=== PATIENT | male | born 1980 | race Asian ===

== ENCOUNTER 2018-03-06 15:42 | Emergency (ER) | payer OTHER ==
[~2018-03-06] VITALS: Ht 174 cm; Wt 70.3 kg
[2018-03-06 15:46] VITALS: TEMP 36.5; Ht 174 cm; Wt 70.3 kg
[2018-03-06] MEDS ORDERED: AMPICILLIN/SULBACTAM SOD INJ 3,000 MG in SODIUM CHLORIDE 0.9% 100ML 100 ML IV STA (16:00)
[2018-03-06 16:19] LABS: BASO % 0.3 %; BASO ABS # 0.02 K/uL (0-0.2); EOS ABS # 0.88 K/uL (0-0.5); HEMATOCRIT 43.4 % (42-52); IG# 0.01 K/uL (0.00-0.02); LYMPH % 25.3 %; LYMPH ABS # 1.71 K/uL (1.2-3.4); MEAN CELL VOLUME 92.3 fL (80-100); MEAN CORPUSCULAR HEMOGLOBIN 31.9 pg (25-34); MEAN CORPUSCULAR HGB CONC 34.6 g/dl (32-36); MEAN PLATELET VOLUME 10.1 fL (7.4-10.4); MONO % 6.4 %; MONO ABS # 0.43 K/uL (0.11-0.59); NEUT % 54.9 %; PLATELET COUNT 242 K/uL (130-400); RED CELL DISTRIBUTION WIDTH CV 12.7 % (11.5-14.5); RED CELL DISTRIBUTION WIDTH SD 42.8 fL (36.4-46.3); WHITE BLOOD COUNT 6.75 K/uL (4.8-10.8)
[2018-03-06 16:39] LABS: CALCIUM 8.9 mg/dl (8.5-10.1); CREATININE 1.15 mg/dl (0.60-1.40); POTASSIUM 3.9 mmol/L (3.5-5.1)
[2018-03-06] MEDS ORDERED: AMOX875T PO (17:15)
--- NOTE | 2018-03-06 17:17 | EMERGENCY ROOM VISIT NOTE ---
History First contact with patient: 15:48 Chief Complaint: BITE Stated Complaint: MOUSE BITE- History of Present Illness The patient is a 37 year old male who presents to the Emergency Room with complaints of left hand infection secondary to a mouse bite. 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 He then started noticing swelling to his finger and now it is over his whole hand and it is red and warm. He went to [facility] [address] outpatient clinic and was told to come here for IV antibiotics. The patient's tetanus is up-to-date. The patient denies any streaking up his arm. Review of Systems 10 system review was performed and was negative unless stated otherwise history of present illness. Past Medical/Surgical History No significant past medical history Social History Smoking Status: Never Smoker Smokeless Tobacco Use: No Alcohol Use: none Drug Use: none Marital Status: single Housing Status: lives alone Occupation Status: employed Physical Exam Vital Signs Date Time Temp Pulse Resp B/P (MAP) Pulse Ox O2 Delivery O2 Flow Rate FiO2 03/06/18 15:46 36.5 76 16 120/78 96 Room Air Physical Exam GENERAL: 37-year-old male appears in no acute distress. MENTAL Status: Alert and oriented 3. LUNGS: Clear auscultation without wheezes rales or rhonchi. CARDIAC: Regular rate and rhythm without murmur. Pulses is full and equal throughout. LEFT HAND: There is a puncture wound noted dorsal aspect of the PIP joint of the second digit. Entire hand with erythema and edema. Increased temperature to touch. There is no streaking noted at the arm. The patient is able to flex his fingers without difficulty. Medical Decision & Procedures Laboratory Results 03/06/18 16:09 Red Blood Count 4.70, Mean Corpuscular Volume 92.3, Mean Corpuscular Hemoglobin 31.9, Mean Corpuscular Hemoglobin Concent 34.6, Mean Platelet Volume 10.1, Neutrophils (%) (Auto) 54.9, Lymphocytes (%) (Auto) 25.3, Monocytes (%) (Auto) 6.4, Eosinophils (%) (Auto) 13.0, Basophils (%) (Auto) 0.3, Neutrophils # (Auto ) 3.70, Lymphocytes # (Auto) 1.71, Monocytes # (Auto) 0.43, Eosinophils # (Auto ) 0.88, Basophils # (Auto) 0.02 03/06/18 16:09 Test 03/06/18 16:09 White Blood Count 6.75 K/uL (4.8-10.8) Red Blood Count 4.70 M/uL (4.7-6.1) Hemoglobin 15.0 g/dL (14.0-18.0) Hematocrit 43.4 % (42-52) Mean Corpuscular Volume 92.3 fL (80-100) Mean Corpuscular Hemoglobin 31.9 pg (25-34) Mean Corpuscular Hemoglobin Concent 34.6 g/dl (32-36) Platelet Count 242 K/uL (130-400) Mean Platelet Volume 10.1 fL (7.4-10.4) Neutrophils (%) (Auto) 54.9 % Lymphocytes (%) (Auto) 25.3 % Monocytes (%) (Auto) 6.4 % Eosinophils (%) (Auto) 13.0 % Basophils (%) (Auto) 0.3 % Neutrophils # (Auto) 3.70 K/uL (1.4-6.5) Lymphocytes # (Auto) 1.71 K/uL (1.2-3.4) Monocytes # (Auto) 0.43 K/uL (0.11-0.59) Eosinophils # (Auto) 0.88 K/uL (0-0.5) Basophils # (Auto) 0.02 K/uL (0-0.2) RDW Standard Deviation 42.8 fL (36.4-46.3) RDW Coefficient of Variation 12.7 % (11.5-14.5) Immature Granulocyte % (Auto) 0.1 % Immature Granulocyte # (Auto) 0.01 K/uL (0.00-0.02) Anion Gap 4.0 mmol/L (3-11) Est Creatinine Clear Calc Drug Dose 88.2 ml/min Estimated GFR () 95.0 Estimated GFR (Non- 82.0 BUN/Creatinine Ratio 14.5 (10-20) Calcium Level 8.9 mg/dl (8.5-10.1) Medications Administered Medications (Trade) Dose Ordered Sig/Janessa Route Start Time Stop Time Status Last Admin Dose Admin Ampicillin Sodium/ Sulbactam Sodium 3000 mg/Sodium Chloride 108 ml @ 200 mls/hr NOW STAT IV 03/06/18 16:00 03/06/18 16:32 DC 03/06/18 16:13 200 MLS/HR ED Course Patient was evaluated. I discussed with the pharmacist the appropriate antibiotic treatment for this patient. Was recommended that I give the patient Unasyn 3 g IV and placed the patient on Augmentin as an outpatient. The patient was given Unasyn 3 g IV. CBC and differential and renal profile was ordered. Labs are reviewed and were unremarkable. White count was normal. The proximal aspect of the area of erythema was marked. The patient was instructed that he he will need rechecked in 48 hours. The patient was informed it would be best if he can come back to the emergency room but he stated he did not know if he would have the time and asked if he could follow- up with [facility]. I told him this would be okay. I told him if the symptoms worsen he should return to the ER. The patient was discharged home in stable condition Medical Decision Differential diagnosis include localized infection, cellulitis, lymphangitis Impression Primary Impression: Cellulitis Departure Information Dispostion Home / Self-Care Condition GOOD Prescriptions Amoxicillin & Pot Clavulanate (Augmentin 875-125 mg) 1 Tab Tab 1 TAB PO BID for 10 Days, #20 TAB Prov: Jeannine Mayo PA-C 03/06/18 Referrals No Doctor, Assigned (PCP) Forms HOME CARE DOCUMENTATION FORM, IMPORTANT VISIT INFORMATION Patient Instructions Cellulitis - [facility], [facility] Additional Instructions Ibuprofen 600 mg every 6 hours as needed for pain. Take Augmentin as prescribed. Follow-up with your family doctor or return to ER in 48 hours for recheck. If symptoms worsen in the interim, return to ER. Problem Qualifiers Primary Impression: Cellulitis Site of cellulitis: extremity Site of cellulitis of extremity: upper extremity Laterality: left Qualified Codes: L03.114 - Cellulitis of left upper limb
[2018-03-06 17:23] VITALS: BP 130/78; PULSE 63; O2SAT 100
== END 2018-03-06 17:50 | disposition home or self-care (01) ==
LOC: C.EDB 15:44 → C.EDD 17:50
DX: L03.114 Cellulitis of left upper limb (principal); S61.452A Open bite of left hand, initial encounter; W53.01XA Bitten by mouse, initial encounter; Y99.0 Civilian activity done for income or pay